=== PATIENT | male | born 1960 | race Hispanic/Latino ===

== ENCOUNTER 2017-07-29 19:59 | Emergency (ER) | payer OTHER ==
[2017-07-29 20:11] VITALS: TEMP 97.9; O2SAT 100
[2017-07-29] MEDS ORDERED: TDAP Vaccine 0.5 mL Syr IM ONE (21:15)
--- NOTE | 2017-07-29 21:19 | ED PDOC ---
Arrival/HPI - General Chief Complaint: Finger,Hand,&Wrist Time Seen by Provider: 07/29/17 20:09 Historian: Patient - History of Present Illness Narrative History of Present Illness (Text): 07/29/17 21:16 A 57 year old male presents to the emergency department complaining of a blister to his right fourth digit for 4 days. Patient reports he is unsure how he developed the blister. He denies any pain or discharge from the site. Patient was seen by PMD yesterday, who instructed him to come in to the emergency room for further evaluation. Patient denies any trauma, injury, fever , chills or any other complaints. Time/Duration: Other (4 days) Symptom Course: Unchanged Quality: Other Context: Home Past Medical History - Provider Review Nursing Documentation Reviewed: Yes - Cardiac Hx Cardiac Disorders: Yes - Pulmonary Hx Respiratory Disorders: No - Neurological Hx Neurological Disorder: No - HEENT Hx HEENT Disorder: No - Renal Hx Renal Disorder: No - Endocrine/Metabolic Hx Endocrine Disorders: Yes Hx Hypothyroidism: Yes - Hematological/Oncological Hx Blood Disorders: No - Integumentary Hx Dermatological Disorder: No - Musculoskeletal/Rheumatological Hx Musculoskeletal Disorders: No - Gastrointestinal Hx Gastrointestinal Disorders: No - Genitourinary/Gynecological Hx Genitourinary Disorders: No - Psychiatric Hx Psychophysiologic Disorder: No Hx Substance Use: No Family/Social History - Physician Review Nursing Documentation Reviewed: Yes Family/Social History: No Known Family HX Smoking Status: Never Smoked Hx Alcohol Use: Yes Frequency of alcohol use: Socially Hx Substance Use: No Allergies/Home Meds Allergies/Adverse Reactions: Allergies No Known Allergies Allergy (Verified 07/29/17 20:04) Review of Systems - Physician Review All systems were reviewed & negative as marked: Yes - Review of Systems Constitutional: absent: Fevers, Night Sweats Skin: Other (Blister to right fourth digit) Physical Exam Vital Signs Reviewed: Yes Vital Signs Temp Pulse Resp BP Pulse Ox 07/29/17 21:32 79 18 168/71 H 100 07/29/17 21:30 80 18 156/72 H 100 07/29/17 20:06 97.9 F 88 16 170/81 H 100 Temperature: Afebrile Blood Pressure: Hypertensive Pulse: Regular Respiratory Rate: Normal Appearance: Positive for: Well-Appearing, Non-Toxic, Comfortable Pain Distress: None Mental Status: Positive for: Alert and Oriented X 3 - Systems Exam Head: Present: Atraumatic, Normocephalic Pupils: Present: PERRL Extroacular Muscles: Present: EOMI Conjunctiva: Present: Normal Mouth: Present: Moist Mucous Membranes Upper Extremity: Present: Normal ROM, NORMAL PULSES, Neurovascularly Intact, Other (1 x 2 cm vesicle to volar distal aspect of right 4th digit, no surrounding infection or edema.). No: Cyanosis, Edema, Tenderness, Temperature Abnormalties Neurological: Present: GCS=15, CN II-XII Intact, Speech Normal Skin: Present: Warm, Dry, Normal Color. No: Rashes Psychiatric: Present: Alert, Oriented x 3, Normal Insight, Normal Concentration Medical Decision Making ED Course and Treatment: 07/29/17 21:16 Impression: A 57 year old male with a blister to right fourth digit Plan: -- Keflex and Boostrix vaccine -- Reassess and disposition Progress Notes: Patient's blister - on the R 4th digit, was drained with an 18 g needle of thin clear fluid by PA, using aseptic technique. Wound was then irrigated with NS and a clean dressing was applied. I have discussed the plan with the patient, who expresses understanding. Patient in agreement with plan to be discharged home. Patient is stable for discharge. Patient was instructed to follow up with physician or return if symptoms worsen or new concerning symptoms arise. - Medication Orders Current Medication Orders: Discontinued Medications Cephalexin Monohydrate (Keflex) 500 mg PO STAT STA PRN Reason: Protocol Stop: 07/29/17 21:16 Last Admin: 07/29/17 21:28 Dose: 500 mg Tetanus/Reduced Diphtheria/Acell Pertussis (Boostrix Vaccine Inj) 0.5 ml IM .ONCE ONE Stop: 07/29/17 21:16 Last Admin: 07/29/17 21:29 Dose: 0.5 ml Immunization Registry Document 07/29/17 21:29 AD (Rec: 07/29/17 21:29 AD [facility] [id number]) Immunization Registry Consent Date 07/29/17 - PA / MANAGER CLEANING / Resident Statement MD/DO has reviewed & agrees with the documentation as recorded. - Scribe Statement The provider has reviewed the documentation as recorded by the Kaylinibjim Graham Provider Scribe Attestation: All medical record entries made by the Scribe were at my direction and personally dictated by me. I have reviewed the chart and agree that the record accurately reflects my personal performance of the history, physical exam, medical decision making, and the department course for this patient. I have also personally directed, reviewed, and agree with the discharge instructions and disposition. Disposition/Present on Arrival - Present on Arrival Any Indicators Present on Arrival: No History of DVT/PE: No History of Uncontrolled Diabetes: No Urinary Catheter: No History of Decub. Ulcer: No History Surgical Site Infection Following: None - Disposition Have Diagnosis and Disposition been Completed?: Yes Diagnosis: Blister Disposition: HOME/ ROUTINE Disposition Time: 21:00 Patient Plan: Discharge Condition: STABLE Discharge Instructions (ExitCare): Acute Wound Care (ED), Blister (ED) Print Language: LITHUANIAN Additional Instructions: Thank you for letting us take care of you today. You were treated for a blister on your finger. The emergency medical care you received today was directed at your acute symptoms. If you were prescribed any medication, please fill it and take as directed. It may take several days for your symptoms to resolve. Return to the Emergency Department if your symptoms worsen, do not improve, or if you have any other problems. Please contact your doctor in 2 days for re-evaluation and follow up. Bring any paperwork you were given at discharge with you along with any medications you are taking to your follow up visit. Our treatment cannot replace ongoing medical care by a primary care provider (PCP) outside of the emergency department. Thank you for allowing the [facility] team to be part of your care today. Prescriptions: Cephalexin [Keflex] 500 mg PO Q6 #28 capsule Referrals: Millicent Regalado MD [Primary Care Provider] - Follow up with primary Forms: [employer] ([place]an), WORK NOTE
[2017-07-29 21:32] VITALS: BP 168/71; PULSE 79; RESP 18
== END 2017-07-29 21:34 | disposition home or self-care (01) ==
LOC: ED 19:59
DX: S60.424A Blister (nonthermal) of right ring finger, initial encounter (principal); X58.XXXA Exposure to other specified factors, initial encounter; Y92.9 Unspecified place or not applicable; Z23 Encounter for immunization